=== PATIENT | female | born 1970 | race Caucasian/White ===

== ENCOUNTER 2016-06-18 10:01 | Outpatient (CLI) | payer BC ==
[~2016-06-18] VITALS: Ht 157.5 cm; Wt 100.5 kg
[~2016-06-18 10:01] MED LIST: ALPR0.25 PO; CLON2TAB4 PO; CRAN500T2 PO; ELET40TA PO; FENO135C PO; FLUO40CA7 PO; LEVO88TA4 PO; MELA10TA2 PO; MULT1TAB69 PO; NITR100C PO; PREG150C PO; ZINC50TA64 PO; [UNRECOGNIZED DRUG - CODE] INJ
[2016-06-18] MEDS ORDERED: COSYNTROPIN IV ONE (10:30)
[2016-06-18 10:47] LABS: HCT - HEMATOCRIT 24.2 % (36-46); HGB - HEMOGLOBIN 7.8 GM/DL (12-16); MEAN CORPUSCULAR HGB 29.7 UUG (26-34); MEAN CORPUSCULAR HGB CONC(MCHC 32.2 GM/DL (31-37); MEAN PLATELET VOLUME 10.1 UM3 (9.4-12.4); RED BLOOD COUNT 2.63 M/MM3 (4.00-5.20); WBC - WHITE BLOOD COUNT 2.5 T/MM3 (4.5-11.0)
[2016-06-18 10:55] LABS: ALBUMIN 3.1 G/DL (3.5-5.0); ALKALINE PHOSPHATASE 60 U/L (38-126); ANION GAP 8 MEQ/L (5-15); BUN/CREATININE RATIO 17 RATIO (6-26); CALCIUM 8.6 MG/DL (8.4-10.2); CHLORIDE 114 MEQ/L (98-107); CO2 - CARBON DIOXIDE 22 MEQ/L (22-30); CREATININE 0.7 MG/DL (0.7-1.2); GLOMERULAR FILTRATION RATE 91; GLUCOSE 92 MG/DL (65-110); POTASSIUM 3.8 MEQ/L (3.6-5); SODIUM 144 MEQ/L (134-144); TOTAL PROTEIN 5.8 G/DL (6.3-8.2)
[2016-06-18 10:56] LABS: ALBUMIN/GLOBULIN RATIO 1.1 RATIO (1.1-2.2); ALT (SGPT) 23 U/L (9-52); AST (SGOT) 19 U/L (14-36); LDH 424 U/L (313-618); MAGNESIUM 2.1 MG/DL (1.6-2.3)
[2016-06-18 10:58] VITALS: BP 126/77; PULSE 76; RESP 16; TEMP 97.1; O2SAT 100
[2016-06-18 11:23] VITALS: BP 128/76; PULSE 76; RESP 16; TEMP 97.3; O2SAT 100
[2016-06-18 11:42] VITALS: Ht 157.5 cm; Wt 100.5 kg
[2016-06-18 11:42] LABS: BAND NEUTROPHILS # 0.3 T/MM3; LYMPHOCYTES # (MANUAL) 0.4 T/MM3 (1-4.8); METAMYELOCYTES # 0.1 T/MM3; MONOCYTES # (MANUAL) 0.3 T/MM3 (0-0.8); MYELOCYTES # 0.1 T/MM3; NEUTROPHILS #(MANUAL)-ABSOLUTE 1.5 T/MM3 (1.8-7.7); TOTAL CELLS COUNTED 100 %
[2016-06-18 11:43] LABS: ANISOCYTOSIS 1+; POIKILOCYTOSIS 1+
[2016-06-18 11:58] VITALS: BP 135/81; PULSE 77; RESP 16; O2SAT 100
[2016-06-18 12:30] VITALS: BP 132/84; PULSE 78; RESP 16; O2SAT 100
== END 2016-06-18 12:45 | disposition home or self-care (01) ==
LOC: INF.THER 10:01
PROVIDERS: ATTEND Internal Medicine Hematology & Oncology
DX: C50.211 Malignant neoplasm of upper-inner quadrant of right female breast (principal)
CPT/HCPCS: 80053; 82533; 83615; 83735; 85025

== ENCOUNTER → 2016-08-18 | Outpatient (CLI) | payer BC ==
--- NOTE | 2016-08-18 10:12 | DI ---
Indication: ITS.REASON: C50.211 BREAST PROCEDURE: PET/CT SKULL TO THIGH SUBSEQUE: Encounter: Subsequent Comparison: PET/CT dated April 09, 2016 Technique: 17.9 mCi of F-18 FDG was administered intravenously via the right antecubital fossa. Approximately 60 minutes later 3D PET/CT imaging was performed from the skull base through the mid thighs. The CT images are for attenuation correction purposes only. Findings: No areas of abnormal metabolic uptake within the skull base or neck. The area of nodularity in the anterior left upper lobe is smaller on today's study although there are couple tiny nodular foci remaining. This region does not show FDG uptake above the mediastinal background. No FDG avid pulmonary nodules or masses appreciated. There is again focal hypermetabolism in the prevascular space with a nodule present containing an SUV max of 3.7, similar to the prior study. No additional metabolic reactive areas seen within the chest. Expected myocardial uptake. Liver uptake is homogeneous without focal mass. Postoperative changes in the stomach. Expected genitourinary and bowel uptake. No areas of abnormal skeletal uptake appreciated. Impression: 1. Stable focus of FDG uptake in the prevascular space suspicious for a lymph node. 2. Decreasing nodularity in the left upper lobe that could be due to infection or inflammation. .
== END ==
LOC: IMA 06:19
PROVIDERS: ATTEND Internal Medicine Hematology & Oncology
DX: C50.211 Malignant neoplasm of upper-inner quadrant of right female breast (principal)
CPT/HCPCS: 78815; A9552